=== PATIENT | female | born 1925 | race Caucasian/White ===

== ENCOUNTER 2016-07-19 18:10 | Emergency (ER) | payer MEDICARE, BC ==
[2016-07-19 18:41] VITALS: BP 159/71
--- NOTE | 2016-07-19 19:25 | UC ---
Skin Complaint HPI - HPI Summary HPI Summary: Discovered tick on R flank area yesterday and neighbor helped her remove it. The area has large red oval around it, no fever, pain, or itching. - History of Current Complaint Time Seen by Provider: 07/19/16 19:09 Stated Complaint: TICK BITE Hx Obtained From: Patient ?: Yes Onset/Duration: Gradual Onset, Lasting Days Skin Exposure Onset/Duration: Days Ago Timing: Constant Onset Severity: Mild Current Severity: Mild Location: Discrete Character: Redness, Raised Aggravating: Nothing Alleviating: Nothing Associated Signs & Symptoms: Positive: Rash Related History: Insect Bite/Sting - Allergy/Home Medications Allergies/Adverse Reactions: Allergies Allergy/AdvReac Type Severity Reaction Status Date / Time No Known Allergies Allergy Verified 08/28/14 10:56 Home Medications: Home Medications Aspirin [Aspirin Adult Low Dose 81 MG] 81 mg PO 07/19/16 [History] Calcium Carbonate (Antacid) [Tums] 07/19/16 [History] Levothyroxine Sodium [Synthroid] 100 mcg PO 07/19/16 [History] Lisinopril [Zestril 40 MG-] 40 mg PO DAILY 07/19/16 [History Confirmed 07/19/16] Metoprolol Succinate [Toprol Xl] 100 mg PO 07/19/16 [History] Multiple Vitamin [Multivitamins] 1 cap PO 07/19/16 [History] Review of Systems Constitutional: Negative Skin: Rash - R flank at site of tick bite Eyes: Negative ENT: Negative Respiratory: Negative Cardiovascular: Negative Gastrointestinal: Negative Genitourinary: Negative Motor: Negative Neurovascular: Negative Musculoskeletal: Negative Neurological: Negative Psychological: Negative All Other Systems Reviewed And Are Negative: Yes PMH/Surg Hx/FS Hx/Imm Hx Endocrine History Of: Reports: Thyroid Disease Denies: Diabetes Cardiovascular History Of: Reports: Hypertension Denies: Cardiac Disorders Respiratory History Of: Denies: COPD, Asthma GI/ History Of: Denies: Ulcer Cancer History Of: Denies: Breast Cancer - Surgical History Surgical History: Yes Surgery Procedure, Year, and Place: cholecystectomy - Family History Known Family History: Negative: Blood Disorder - Social History Occupation: Retired Lives: Alone Alcohol Use: Occasionally Substance Use Type: None Smoking Status (MU): Never Smoked Tobacco Physical Exam Triage Information Reviewed: Yes Appearance: Well-Appearing, No Pain Distress, Well-Nourished Vital Signs: Initial Vital Signs Temp 97.0 F 07/19/16 18:35 Pulse 110 07/19/16 18:35 Resp 16 07/19/16 18:35 BP 159/71 07/19/16 18:35 Pulse Ox 100 07/19/16 18:35 Vital Signs Reviewed: Yes Eye Exam: Normal Eyes: Positive: Conjunctiva Clear ENT Exam: Normal ENT: Positive: Normal ENT inspection, Hearing grossly normal, Pharynx normal, TMs normal Dental Exam: Normal Neck exam: Normal Neck: Positive: Supple, Nontender, No Lymphadenopathy Respiratory Exam: Normal Respiratory: Positive: Chest non-tender, Lungs clear, Normal breath sounds, No respiratory distress, No accessory muscle use Cardiovascular Exam: Normal Cardiovascular: Positive: RRR, No Murmur Musculoskeletal Exam: Normal Neurological Exam: Normal Neurological: Positive: Alert Psychological Exam: Normal Skin Exam: Other - 6cm x 3cm red area around tick bite R flank, nontender Course/Dx - Diagnoses Provider Diagnoses: tick bite. early localized lyme disease Discharge - Discharge Plan Condition: Stable Disposition: HOME Prescriptions: DOXYcycline CAP(*) [DOXYcycline 100MG CAP(*)] 100 mg PO BID #14 cap Patient Education Materials: Lyme Disease (ED) Referrals: Azul Woods MD [Primary Care Provider] - Additional Instructions: As we discussed, your red area could be a simple bacterial cellulitis, but this should also respond well to doxycycline.
== END 2016-07-19 19:24 | disposition home or self-care (01) ==
LOC: UCEAST 18:10
DX: S30.861A Insect bite (nonvenomous) of abdominal wall, initial encounter (principal); W57.XXXA Bitten or stung by nonvenomous insect and other nonvenomous arthropods, initial encounter; Y93.9 Activity, unspecified; Y92.9 Unspecified place or not applicable; A69.20 Lyme disease, unspecified; E07.9 Disorder of thyroid, unspecified; I10 Essential (primary) hypertension; Z90.49 Acquired absence of other specified parts of digestive tract
CPT/HCPCS: 99212; G0463